=== PATIENT | male | born 1990 | race Caucasian/White ===

== ENCOUNTER → 2023-04-25 | Outpatient (CLI) | payer OTHER ==
[2023-04-25 15:06] LABS: Basophils # (A) 0.03 X 10*3/uL (0.00-0.10); Basophils % (A) 0.4 %; Eosinophils # (A) 0.04 X 10*3/uL (0.04-0.35); Eosinophils % (A) 0.5 %; HCT 47.7 % (39.6-50.0); HGB 15.8 d/dL (12.0-15.0); Lymphocytes # (A) 2.79 X 10*3/uL (0.90-5.00); Lymphocytes % (A) 35.3 %; MCH 28.8 pg (27.0-32.0); MCHC 33.1 d/dL (32.0-37.0); MCV 86.9 FL (80.0-97.0); Mean Platelet Volume 9.4 FL (9.5-12.2); Monocytes % (A) 7.6 %; NRBC Per 100 WBC 0 X 10*3/uL (0.00-0.01); Neutrophils # (A) 4.43 X 10*3/uL (1.80-7.70); Neutrophils % (A) 55.9 %; Platelet Count 277 X 10*3/uL (140-440); RBC 5.49 X 10*6/uL (4.40-5.60); WBC 7.91 X 10*3/uL (4.50-10.00)
[2023-04-25 15:43] LABS: Anion Gap 9.2 mmol/L (4.00-12.00); Carbon Dioxide 27.8 mmol/L (21.6-31.8); Potassium 4.7 mmol/L (3.5-5.5)
== END | disposition home or self-care (01) ==
LOC: LABPAT 09:13
PROVIDERS: ATTEND Orthopaedic Surgery
DX: Z01.812 Encounter for preprocedural laboratory examination (principal); M75.41 Impingement syndrome of right shoulder
CPT/HCPCS: 36415; 80051; 85025

== ENCOUNTER 2023-05-05 05:55 | Day surgery (SDC) | payer OTHER ==
[2023-05-02 09:04] VITALS: BMI 34.9
--- NOTE | 2023-05-04 17:25 | HP ---
HISTORY AND PHYSICAL DATE OF SURGERY: 05/05/2023. HISTORY OF PRESENT ILLNESS: Jose Suero is a 32-year-old gentleman seen with progressive right shoulder pain. We discussed options for treatment. The patient elected to proceed with right shoulder arthroscopy. Consent was obtained. PAST MEDICAL HISTORY: Noncontributory. PAST SURGICAL HISTORY: Noncontributory. DAILY MEDICATIONS: 1. Motrin. 2. Tylenol. ALLERGIES: None. SOCIAL HISTORY: He denies tobacco use. PHYSICAL EVALUATION OF RIGHT SHOULDER: Flexion is 160 degrees, abduction is 150 degrees, external rotation is 50 degrees with pain. He is tender along the anterolateral acromion and rotator cuff insertion site as well as the acromioclavicular joint. Impingement is positive at 100. Cross-body adduction sign is positive. Distal neurovascular exam is intact. IMAGING STUDIES: Radiographs of right shoulder failed to reveal any osseous abnormality. MRI right shoulder revealed acromioclavicular joint osteolysis, superior labral tear, and intrasubstance tear of the rotator cuff tendon, supraspinatus. IMPRESSION: 1. Right shoulder impingement with partial rotator cuff tear. 2. Right shoulder acromioclavicular joint osteolysis. 3. Right shoulder superior labral tear. PLAN: Right shoulder arthroscopy, subacromial decompression, possible arthroscopic rotator cuff repair, possible labral repair versus debridement, Erik procedure and debridement. MMODL / IJN: [id number] /
[2023-05-05] MEDS ORDERED: MIDAZOLAM 2 MG/2 ML VIAL IV PRN (06:10)
[2023-05-05] MEDS ORDERED: DEXAMETHASONE SOD PHOSPHATE 4 MG/ML 1 ML VIAL IV ONE (06:10)
[2023-05-05] MEDS ORDERED: SCOPOLAMINE 1 MG/72 HR PATCH TRANSDERM ONE (06:10)
[2023-05-05] MEDS ORDERED: ONDANSETRON 4 MG/2 ML VIAL IVP ONE (06:10)
[2023-05-05] MEDS ORDERED: LACTATED RINGERS 1,000 ML IV SCH (06:10)
[2023-05-05] MEDS ORDERED: HYDROmorphone 0.5 MG/0.5 ML SYRINGE IVP PRN (07:00)
[2023-05-05] MEDS ORDERED: ROPIVACAINE 5 MG/ML 30 ML VIAL ONE (07:19)
[2023-05-05] MEDS ORDERED: PROPOFOL 10 MG/ML 20 ML VIAL IV ONE (07:19)
[2023-05-05] MEDS ORDERED: LIDOCAINE 2% INJ 20 MG/ML (2 ML VIAL) ONE (07:19)
[2023-05-05] MEDS ORDERED: fentaNYL (PF) 50 MCG/ML 2 ML AMP ONE (07:19)
[2023-05-05] MEDS ORDERED: SUCCINYLCHOLINE CHLORIDE 200 MG/10 ML VIAL IV ONE (07:19)
[2023-05-05] MEDS ORDERED: HYDROmorphone (PF) 1 MG/ML ONE (07:19)
--- NOTE | 2023-05-05 08:06 | P.ANPRN ---
Procedure Note - Anesthesia - Nerve Block Performed Right Interscalene Single Date of Procedure: 05/05/23 Procedure Start Time: 06:48 Procedure Stop Time: 06:59 Location of Patient: PreOp Indication: Acute Post-Operative Pain, Requested by Surgeon Specifically requested for management of pain by DrNhi: Alberto Madera Sedation Type: Sedate with meaningful contact maintained Preparation: Sterile Prep Position: Sitting Needle Types: Facet Needle Gauge: 21 Ultrasound used to visualize needle placement: Yes Ultrasound used to observe medication spread: Yes Injectate: 0.5% Ropivacaine (see comment for volume) Blood Aspirated: No Pain Paresthesia on Injection Noted: No Resistance on Injection: Normal Image Stored and Saved: Yes Events: Uneventful and Well Tolerated (30 mls)
[2023-05-05 09:07] VITALS: TEMP 97.1
--- NOTE | 2023-05-05 09:12 | P.OP ---
Date of Procedure: 05/05/23 Preoperative Diagnosis: Right shoulder impingement Postoperative Diagnosis: 1. Right shoulder rotator cuff tear 2. Right shoulder impingement 3. 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 Right shoulder arthroscopic rotator cuff repair 2. Right shoulder arthroscopic subacromial decompression 3. Right shoulder arthroscopic Erik procedure Implants: 1Arthrex 4.75 swivel lock anchor Anesthesia: GETA, regional (Interscalene block) Surgeon: Alberto Madera [employer] Operator #1: Donovan Pugh Estimated Blood Loss (ml): 7 Pathology: none sent Condition: stable Disposition: PACU Indications for Procedure: 32-year-old patient seen with progressive right shoulder pain. After treatment options were discussed, he elected to proceed with arthroscopy. Operative Findings: See description of procedure Description of Procedure: Patient underwent an interscalene block by department of anesthesia. The patient was then taken to the operative suite. The patient underwent a general anesthetic by the department of anesthesia. The patient was placed into a lateral position and secured. There was appropriate padding of the bony prominence. Right shoulder was then prepped and draped in normal sterile orthopedic fashion. We placed the extremity in 10 pounds of longitudinal traction. A posterior incision was now made for a posterior working portal site. The trocar and cannula were inserted into the glenohumeral joint. Arthroscopy was initiated. Spinal needle was now inserted anteriorly, to ascertain the anterior working portal site. An incision was now made in that area, a trocar was inserted followed by a probe. There was no evidence for chondromalacia. The labrum was probed and was found to be stable. The biceps was stable. There was good stability about the glenohumeral joint. At this point instruments removed from glenohumeral joint. Utilizing the posterior working portal site, the trocar and cannula were inserted into the subacromial space. Arthroscopy initiated. I made an incision 2 fingerbreadths lateral to the acromion. I introduced my trocar followed by my ArthroCare ablator. I now began ablating thick subacromial bursal tissue, which exposed the undersurface of the anterior acromion. There was diminished subacromial space. There was a very prominent anterior acromion. A motorized bur was introduced and a subacromial decompression was performed. I also excised some osteophytes off the inferior aspect of the distal clavicle. The AC joint was visualized and noted to be fairly arthritic with some visual evidence of some osteolysis of the distal clavicle. I introduced a motorized bur through my anterior portal site and performed a Erik procedure without difficulty. I noted good decompression of the acromioclavicular joint. I turned my attention to the rotator cuff tendon. There was significant tearing long distal supraspinatus area. Upon probing the area I found a full-thickness perforation present. At this point I introduced a motorized shaver and debrided the margins getting down to stable rotator cuff tendon tissue. The defect/tear measuring about 1.5 cm and was freely mobile over the footprint. I abraded the footprint with a motorized bur. With the assistance of Holden GRACE past 3 everted mattress suture through good bites of rotator cuff tendon. I partial hole the footprint area for insertion of an anchor. All 6 limbs of suture were passed through the eyelet of a Arthrex 4.75 swivel lock anchor. I placed the eyelet into our pre-punch hole. I held in position while Holden GRACE tensioned all 6 limbs of suture and deployed the anchor with good fixation noted. All residual suture limbs were now clipped. We had good compression of the tendon along the entire footprint. Instruments now removed from the portal sites. All portal sites were approximated with nylon suture. Sterile dressings were applied followed by a shoulder sling. Donovan GRACE assisted in this case. The patient was awakened, transferred to a bed, and taken to recovery in stable condition.
[2023-05-05 09:33] VITALS: RESP 14
[2023-05-05 10:13] VITALS: BP 129/87; PULSE 85
== END 2023-05-05 10:32 | disposition home or self-care (01) ==
LOC: OR 05:55
PROVIDERS: ATTEND Orthopaedic Surgery
DX: M75.101 Unspecified rotator cuff tear or rupture of right shoulder, not specified as traumatic (principal); G89.18 Other acute postprocedural pain; M75.41 Impingement syndrome of right shoulder; M19.011 Primary osteoarthritis, right shoulder; Z79.899 Other long term (current) drug therapy
CPT/HCPCS: 64415; 29827; 29826; 29824; C1713 ×2; J2250; J0330; J1100; J0690; J2405; J3010; J1170; J2795; J2704; J2001